=== PATIENT | male | born 1995 | race Caucasian/White ===

== ENCOUNTER 2017-05-12 06:57 | Day surgery (SDC) | payer OTHER ==
[2017-05-12] MEDS ORDERED: CEFAZOLIN 2 GM/D5W RTU 2 GM/50 ML RTUPB IV ONE (07:30)
--- NOTE | 2017-05-12 07:56 | RADIOLOGY REPORT (SQ) ---
EXAM DESCRIPTION: CHEST SINGLE VIEW COMPLETED DATE/TIME: 05/12/2017 7:47 am REASON FOR STUDY: PREOP COMPARISON: None. EXAM PARAMETERS: NUMBER OF VIEWS: One view. TECHNIQUE: Single frontal radiographic view of the chest acquired. RADIATION DOSE: NA LIMITATIONS: None. FINDINGS: LUNGS AND PLEURA: No opacities, masses or pneumothorax. No pleural effusion. MEDIASTINUM AND HILAR STRUCTURES: No masses. Contour normal. HEART AND VASCULAR STRUCTURES: Heart normal in size. Normal vasculature. BONES: No acute findings. HARDWARE: None in the chest. OTHER: No other significant finding. IMPRESSION: NO ACUTE RADIOGRAPHIC FINDING IN THE CHEST. TECHNICAL DOCUMENTATION: JOB ID: [id number]
[2017-05-12 08:06] LABS: ABSOLUTE EOSINOPHILS # (AUTO) 0.1 10^3/uL (0.0-0.6); ABSOLUTE LYMPHOCYTES (AUTO) 1.8 10^3/uL (0.5-4.7); ABSOLUTE MONOCYTES (AUTO) 0.8 10^3/uL (0.1-1.4); ABSOLUTE NEUT (AUTO) 4.8 10^3/uL (1.7-8.2); BASOPHILS % (AUTO) 0.6 % (0-2); EOSINOPHILS % (AUTO) 1.9 % (0-6); HEMATOCRIT 40.9 % (37.9-51.0); HEMOGLOBIN 13.7 g/dL (13.5-17.0); HGB HCT DIFFERENCE 0.2; LYMPHOCYTES % (AUTO) 24.2 % (13-45); MEAN CORPUSCULAR HEMOGLOBIN 28.7 pg (27.0-33.4); MEAN CORPUSCULAR HGB CONC 33.6 g/dL (32.0-36.0); MEAN CORPUSCULAR VOLUME 85 fl (80-97); RED BLOOD COUNT 4.79 10^6/uL (4.35-5.55); RED CELL DISTRIBUTION WIDTH 12.4 % (11.5-14.0); SEGMENTED NEUTROPHILS % (AUTO) 62.3 % (42-78); WHITE BLOOD COUNT 7.7 10^3/uL (4.0-10.5)
[2017-05-12 08:17] LABS: ANION GAP 13 (5-19); BLOOD UREA NITROGEN 20 mg/dL (7-20); CALCIUM 9.5 mg/dL (8.4-10.2); CARBON DIOXIDE 26 mmol/L (22-30); CHLORIDE 102 mmol/L (98-107); CREATININE RESULT 1.08 mg/dL (0.52-1.25); GLUCOSE 89 mg/dL (75-110); POTASSIUM 3.9 mmol/L (3.6-5.0)
[2017-05-12 08:18] LABS: PROTHROMBIN TIME 14.4 SEC (11.4-15.4)
[2017-05-12 08:19] LABS: PARTIAL THROMBOPLASTIN TIME 36.7 SEC (23.5-35.8)
--- NOTE | 2017-05-12 08:27 | EKG REPORT ---
SEVERITY:- ABNORMAL ECG - SINUS ARRHYTHMIA FIRST DEGREE AV BLOCK : Confirmed by: Alfonso Trinh MD 12-May-2017 08:27:15
[2017-05-12] MEDS ORDERED: FENTANYL CITRATE INJ/PF 100 MCG/2 ML AMPUL ONE (09:19)
[2017-05-12] MEDS ORDERED: HYDROMORPHONE HCL INJ/PF 2 MG/ML AMPULE ONE ×2 (09:19)
[2017-05-12] MEDS ORDERED: IBUPROFEN INJ 800 MG/8 ML VIAL IV ONE (09:20)
[2017-05-12] MEDS ORDERED: ONDANSETRON HCL INJ/PF 4 MG/2 ML SDV ONE (09:20)
[2017-05-12] MEDS ORDERED: PROPOFOL INJ 200 MG/20 ML VIAL IV ONE (09:20)
[2017-05-12] MEDS ORDERED: MIDAZOLAM 2 MG/2 ML INJ ONE (09:20)
[2017-05-12] MEDS ORDERED: EPHEDRINE SULFATE INJ 50 MG/1 ML AMPULE ONE (09:20)
[2017-05-12] MEDS ORDERED: DEXAMETHASONE SOD PHOSPHATE INJ 4 MG/1 ML VIAL ONE (09:20)
[2017-05-12] MEDS ORDERED: ONDANSETRON HCL INJ/PF 4 MG/2 ML SDV IV PRN ×2 (09:52→12:10)
[2017-05-12] MEDS ORDERED: FENTANYL CITRATE INJ/PF 100 MCG/2 ML AMPUL IV PRN ×3 (09:52)
[2017-05-12] MEDS ORDERED: MEPERIDINE HCL/PF INJ 25 MG/1 ML DISP.SYRIN IV PRN (09:52)
[2017-05-12] MEDS ORDERED: DIPHENHYDRAMINE HCL 50 MG/ML VIAL IV PRN (09:52)
--- NOTE | 2017-05-12 10:30 | Operative Report ---
Operative Report DATE OF SURGERY: 05/12/17 PREOPERATIVE DIAGNOSIS: Bimalleolar ankle fracture OPERATION: Reduction internal fixation right bimalleolar ankle fracture SURGEON: ABIMBOLA WHALEY ANESTHESIA: GA ESTIMATED BLOOD LOSS: 50 PROCEDURE: The patient supine on the operating table the right lower extremities prepped and draped in a sterile fashion. Limb was elevated for exsanguination tourniquet inflated 280 torr. A longitudinal incision was made over the distal fibula. Sharp dissection was carried incision through the periosteum. The underlying fractures identified. Under direct visualization is to anatomically help a lobster-claw clamp. Subsequently a Char locking distal tibial plate is applied and secured with 3 screws proximally and 4 screws distally. Fracture reduction and hardware placement judged fluoroscopically. Next incisions made over the medial malleolus. Sharp dissection was carried incision down to the fracture. The fracture was reduced under direct visualization. Is held in place with 250 mm 4 oh cannulated screws. At this point the fracture reduction hardware placement assessed globally and felt to be adequate. The wounds are irrigated and closed with interrupted Vicryl followed by nova. Sterile compressive dressing and a Cam walker applied and the patient's return to recovery room in satisfactory condition.
[2017-05-12] MEDS: MEPERIDINE HCL/PF INJ 25 MG/1 ML DISP.SYRIN ONE ×2 (10:45→10:50)
[2017-05-12] MEDS: DIPHENHYDRAMINE HCL 50 MG/ML VIAL ONE ×2 (11:00→11:05)
[2017-05-12] MEDS: FENTANYL CITRATE INJ/PF 100 MCG/2 ML AMPUL ONE ×2 (11:10→11:20)
--- NOTE | 2017-05-12 11:57 | RADIOLOGY REPORT (SQ) ---
EXAM DESCRIPTION: NO CHG FLUORO; ANKLE RIGHT AP/LATERAL COMPLETED DATE/TIME: 05/12/2017 10:31 am REASON FOR STUDY: ORIF RIGHT ANKLE COMPARISON: None. FLUOROSCOPY TIME: 0.1 minutes 8 Images saved to PACS RADIATION DOSE: 0.202 mGy LIMITATIONS: None. PROCEDURE: ORIF right ankle FINDINGS: 8 images document the open reduction internal fixation the bimalleolar fracture by means o f a compression plate on the distal fibula and 2 cannulated screws in the medial malleolus. IMPRESSION: ORIF right ankle. COMMENT: PQRS 6045F: Fluoroscopy time of the procedure is documented in the report. TECHNICAL DOCUMENTATION: JOB ID: [id number] [employer]- All Rights Reserved
--- NOTE | 2017-05-12 11:57 | RADIOLOGY REPORT (SQ) ---
EXAM DESCRIPTION: NO CHG FLUORO; ANKLE RIGHT AP/LATERAL COMPLETED DATE/TIME: 05/12/2017 10:31 am REASON FOR STUDY: ORIF RIGHT ANKLE COMPARISON: None. FLUOROSCOPY TIME: 0.1 minutes 8 Images saved to PACS RADIATION DOSE: 0.202 mGy LIMITATIONS: None. PROCEDURE: ORIF right ankle FINDINGS: 8 images document the open reduction internal fixation the bimalleolar fracture by means o f a compression plate on the distal fibula and 2 cannulated screws in the medial malleolus. IMPRESSION: ORIF right ankle. COMMENT: PQRS 6045F: Fluoroscopy time of the procedure is documented in the report. TECHNICAL DOCUMENTATION: JOB ID: [id number] [employer]- All Rights Reserved
[2017-05-12] MEDS ORDERED: HYDROCODONE/ACETAMINOPHEN 5-325 MG TABLET PO PRN (12:10)
[2017-05-12] MEDS ORDERED: MORPHINE SULFATE 10 MG/ML INJ ONE (12:14)
[2017-05-12 14:47] VITALS: BP 151/79
== END 2017-05-12 14:50 | disposition home or self-care (01) ==
LOC: OROUT 06:57 → EDBD 09:00 → OROUT 14:50
PROVIDERS: ATTEND Orthopaedic Surgery
PROC: 0QSJ04Z Reposition Right Fibula with Internal Fixation Device, Open Approach (ICD-10-PCS; 2017-05-12)
PROC: 0QSG04Z Reposition Right Tibia with Internal Fixation Device, Open Approach (ICD-10-PCS; principal; 2017-05-12 09:00)
DX: S82.841A Displaced bimalleolar fracture of right lower leg, initial encounter for closed fracture (principal); W16.92XA Jumping or diving into unspecified water causing other injury, initial encounter; Y99.8 Other external cause status; Z87.891 Personal history of nicotine dependence
CPT/HCPCS: 36415; 85025; 85610; 85730; 80048; 73600; 71010; 93005; 93010; 27814; C1769; C1713 ×5; J2250; J1100; J1200; J3010; J2175; J2270; J1170; J2405; J2704; J0690; J1741; 01480; J3490

== ENCOUNTER 2018-06-03 05:16 | Day surgery (SDC) | payer OTHER ==
[2018-05-27 12:15] LABS: HEMATOCRIT 41.2 % (37.9-51.0); HEMOGLOBIN 14.4 g/dL (13.5-17.0); MEAN CORPUSCULAR HGB CONC 34.9 g/dL (32.0-36.0); MEAN CORPUSCULAR VOLUME 83 fl (80-97); PLATELET COUNT 320 10^3/uL (150-450); RED BLOOD COUNT 4.96 10^6/uL (4.35-5.55); RED CELL DISTRIBUTION WIDTH 13.7 % (11.5-14.0); WHITE BLOOD COUNT 7.3 10^3/uL (4.0-10.5)
[2018-05-27 12:17] LABS: APPEARANCE,URINE CLEAR; BILIRUBIN,URINE NEGATIVE (NEGATIVE); COLOR,URINE YELLOW; GLUCOSE, URINE NEGATIVE (NEGATIVE); KETONES,URINE NEGATIVE (NEGATIVE); LEUKOCYTE ESTERASE,URINE NEGATIVE (NEGATIVE); NITRITE,URINE NEGATIVE (NEGATIVE); PROTEIN,URINE NEGATIVE (NEGATIVE); URINE SPECIFIC GRAVITY 1.029; UROBILINOGEN,URINE NEGATIVE mg/dL (<2.0)
[2018-05-27 12:34] LABS: ANION GAP 16 (5-19); BLOOD UREA NITROGEN 21 mg/dL (7-20); CALCIUM 9.8 mg/dL (8.4-10.2); CARBON DIOXIDE 27 mmol/L (22-30); CHLORIDE 101 mmol/L (98-107); GLUCOSE 78 mg/dL (75-110); POTASSIUM 4.2 mmol/L (3.6-5.0); SODIUM 143.8 mmol/L (137-145)
--- NOTE | 2018-05-27 22:02 | EKG REPORT ---
SEVERITY:- OTHERWISE NORMAL ECG - SINUS BRADYCARDIA : Confirmed by: Sebastián Justin 27-May-2018 22:01:23
[~2018-06-03 05:16] MED LIST: CEFAZOLIN 2 GM/D5W RTU 2 GM/50 ML RTUPB IV PRN; LACTATED RINGERS 1000 ML IV PRN
[2018-06-03] MEDS ORDERED: BUPIVACAINE HCL 0.5%-EPI 1:200000 INJ/PF 30 ML VIAL ONE (06:37)
[2018-06-03] MEDS ORDERED: ACETAMINOPHEN 1,000 MG/100 ML RTUPB IV ONE (07:03)
[2018-06-03] MEDS ORDERED: LIDOCAINE 2% INJ-PF (20 MG/ML) 10 ML AMPUL ONE (07:03)
[2018-06-03] MEDS ORDERED: MIDAZOLAM 2 MG/2 ML INJ ONE (07:03)
[2018-06-03] MEDS ORDERED: FENTANYL CITRATE INJ/PF 100 MCG/2 ML AMPUL ONE (07:03)
[2018-06-03] MEDS ORDERED: PROPOFOL INJ 200 MG/20 ML VIAL IV ONE (07:03)
[2018-06-03] MEDS ORDERED: ONDANSETRON HCL INJ/PF 4 MG/2 ML SDV IV PRN (07:34)
[2018-06-03] MEDS ORDERED: PROMETHAZINE HCL INJ 25 MG/1 ML VIAL IV PRN ×2 (07:34)
[2018-06-03] MEDS ORDERED: MEPERIDINE HCL/PF INJ 25 MG/1 ML DISP.SYRIN IV PRN (07:34)
[2018-06-03] MEDS ORDERED: DIPHENHYDRAMINE HCL 50 MG/ML VIAL IV PRN (07:34)
[2018-06-03] MEDS ORDERED: MORPHINE SULFATE 10 MG/ML INJ IV PRN (07:34)
[2018-06-03] MEDS ORDERED: OXYCODONE-ACETAMINOPHEN 5-325 MG TABLET PO PRN ×2 (07:34)
[2018-06-03] MEDS ORDERED: FENTANYL CITRATE INJ/PF 100 MCG/2 ML AMPUL IV PRN ×3 (07:34)
--- NOTE | 2018-06-03 08:22 | Discharge Summary ---
Discharge Summary (SDC) - Discharge Final Diagnosis: Painful hardware right ankle Date of Surgery: 06/03/18 Discharge Date: 06/03/18 Condition: Good Prescriptions: Oxycodone HCl [Oxy-Ir 5 mg Tablet] 5 mg PO Q6HP PRN #30 tab PRN Reason: Referrals: MOUNA SHULTZ PA [Primary Care Provider] - Discharge Diet: As Tolerated, Regular Respiratory Treatments at Home: Deep Breathing/Coughing Discharge Activity: Balance Activity w/Rest, No tub bath Home Care Assistance: None Needed Report the Following to Your Physician Immediately: Shortness of Breath, Fever over 101 Degrees, Drainage-Foul Smelling
--- NOTE | 2018-06-03 08:24 | Operative Report ---
Operative Report DATE OF SURGERY: 06/03/18 PREOPERATIVE DIAGNOSIS: Painful hardware right ankle OPERATION: Hardware removal right ankle SURGEON: ABIMBOLA WHALEY ANESTHESIA: GA TISSUE REMOVED OR ALTERED: Hardware to CSS ESTIMATED BLOOD LOSS: 25 PROCEDURE: With the patient supine on the operative table the right lower extremities prepped and draped in sterile fashion. The limb was elevated for exsanguination tourniquet inflated 280 torr. Longitudinal incisions made over the lateral surface of the distal fibula line with the previous surgical approach. Sharp dissection used to carry incision down to the level of the underlying hardware. The underlying hardware is visualized by elevation of the soft tissue. The 7 screws holding the plate are removed uneventfully. The plate is subsequent removed uneventfully. The incisions made over the medial aspect of the ankle. With fluoroscopic guidance pins are placed into the cannulated screws and these are on these are removed uneventfully. The tourniquet is deflated hemostasis obtained with electrocautery. The wounds irrigated with bulb lavage. The closure was interrupted Vicryl followed by nylon. A sterile compressive dressing is applied. The patient's return to PACU in satisfactory condition.
[2018-06-03] MEDS: FENTANYL CITRATE INJ/PF 100 MCG/2 ML AMPUL ONE ×2 (08:30→08:45)
--- NOTE | 2018-06-03 08:30 | RADIOLOGY REPORT (SQ) ---
EXAM DESCRIPTION: NO CHG FLUORO COMPLETE DATE/TIME: 06/03/2018 8:18 am REASON FOR STUDY: HARDWARE REMOVAL S82.841A DISPLACED BIMALLEOLAR FRACTURE OF RIGHT LOWER LEG, FINDINGS: Please see combined report for performance of procedure and radiologic supervision and int erpretation. IMPRESSION: Please see combined report for performance of procedure and radiologic supervision and i nterpretation. Reading location - IP/workstation name: [email or web address]
--- NOTE | 2018-06-03 08:30 | RADIOLOGY REPORT (SQ) ---
EXAM DESCRIPTION: ANKLE RIGHT AP/LATERAL COMPLETED DATE/TIME: 06/03/2018 8:18 am REASON FOR STUDY: HARDWARE REMOVAL S82.841A DISPLACED BIMALLEOLAR FRACTURE OF RIGHT LOWER LEG, COMPARISON: 05/12/2017 FLUOROSCOPY TIME: 0.1 minute 3 images saved to PACS. TECHNIQUE: Intra-operative images acquired during surgical procedure to evaluate progress. NUMBER OF IMAGES: 3 images LIMITATIONS: None. FINDINGS: Fluoroscopic images were obtained during orthopedic hardware removal from the right ankle. Please refer to the surgeon's operative report for additional information IMPRESSION: IMAGE(S) OBTAINED DURING PROCEDURE. COMMENT: Quality ID [id number]: Final reports for procedures using fluoroscopy that document radiation exp osure indices, or exposure time and number of fluorographic images (if radiation exposure indices are not available) Please consult full operative report of the attending physician for description of the procedure. TECHNICAL DOCUMENTATION: JOB ID: [id number] [employer]- All Rights Reserved Reading location - IP/workstation name: [email or web address]
[2018-06-03] MEDS ORDERED: OXYCODONE HCL IR 5 MG TABLET PO PRN (09:05)
[2018-06-03] MEDS ORDERED: ONDANSETRON 4 MG TAB.RAPDIS SL PRN (09:06)
[2018-06-03 10:48] VITALS: BP 119/61
[2018-06-03] MEDS ORDERED: DEXAMETHASONE SOD PHOSPHATE INJ 4 MG/1 ML VIAL ONE (14:44)
[2018-06-03] MEDS ORDERED: ONDANSETRON HCL INJ/PF 4 MG/2 ML SDV ONE (14:44)
[2018-06-03] MEDS ORDERED: KETOROLAC TROMETHAMINE 60 MG/2 ML SDV ONE (14:44)
[2018-06-03] MEDS ORDERED: GLYCOPYRROLATE 1 MG/5 ML SYRINGE ONE (14:44)
== END 2018-06-03 10:35 | disposition home or self-care (01) ==
LOC: OROUT 05:16
PROVIDERS: ATTEND Orthopaedic Surgery
DX: S82.841A Displaced bimalleolar fracture of right lower leg, initial encounter for closed fracture (principal); X58.XXXA Exposure to other specified factors, initial encounter; Z79.1 Long term (current) use of non-steroidal anti-inflammatories (NSAID); Z79.899 Other long term (current) drug therapy; Z87.891 Personal history of nicotine dependence; Z01.818 Encounter for other preprocedural examination
CPT/HCPCS: 93005; 36415; 85027; 80048; 81001; 73600; 93010; 20680; C1713; J2250; J3490 ×3; J1100; J1885; J3010; J2405; J2704; J0690; J0131; 01480